=== PATIENT | female | born 1950 | race African-American/Black ===

== ENCOUNTER 2017-08-26 08:59 | Outpatient (CLI) | payer MEDICARE ==
[2017-08-26 09:34] LABS: Bilirubin Negative (Negative); Blood, Urine Small (Negative); Glucose, Urine (Dipstick) Negative (Negative); Ketone, Urine Negative (Negative); Nitrite Negative (Negative); Protein, Urine (Dipstick) 30 mg/dL (Neg-Trace); Urobilinogen 0.2 mg/dL (0.2-1.0)
[2017-08-26 09:36] LABS: Bacteria/HPF 1+ HPF (None Seen); Hyaline Casts/LPF 0-3 HYALINE CAST LPF (0-3 Hyaline); Squamous Epithelial 0-3 HPF (0-3); WBC/HPF 0-3 HPF (0-3)
[2017-08-26 09:43] LABS: Anion Gap 11 mmol/L (10-20); BUN (Urea Nitrogen) 17 mg/dL (9.8-20.1); Calc. Creatinine Clearance 0 mL/min (70-130); Carbon Dioxide 30 mmol/L (23-31); Chloride 104 mmol/L (98-107); Estimated GFR-MDRD 61
--- NOTE | 2017-08-26 12:10 | ULT ---
ULTRASOUND BILATERAL RENAL STANDARD: Date: 08/26/17 HISTORY: Renal cysts. COMPARISON: Renal ultrasound dated 01/16/16. TECHNIQUE: Real-time Mijares scale and color evaluation of the kidneys and urinary bladder was performed with a cur vilinear transducer. FINDINGS: Right kidney measures 10.6 x 3.9 x 5.5 cm. Left kidney measures 11.2 x 5.3 x 5.0 cm. There are multip le bilateral renal cysts, largest measuring up to 7.2 cm. Pre-void urinary bladder volume was 57 mL. No hydronephrosis or calcifications. IMPRESSION: Similar appearance of the bilateral renal simple cysts. POS: [facility]
== END 2017-08-26 09:00 | disposition home or self-care (01) ==
LOC: ULT 08:59
PROVIDERS: ATTEND Urology
DX: N20.0 Calculus of kidney (principal); R31.29 Other microscopic hematuria; N28.1 Cyst of kidney, acquired
CPT/HCPCS: 36415; 76770; 80048; 81001; 87086; 88112

== ENCOUNTER 2018-01-04 19:04 | Inpatient (IN) | payer MEDICARE ==
--- NOTE | 2018-01-04 22:04 | ULT ---
DOPPLER VENOUS ULTRASOUND OF BOTH LOWER EXTREMITIES 01/04/18 INDICATION: Elevated D-dimer and shortness of breath. TECHNIQUE: Mijares scale, color doppler and vascular duplex with spectral analysis was performed of the deep venous structures of both lower extremity. Common femoral vein, superficial femoral vein, popliteal vein, p osterior tibial vein, proximal greater saphenous and profunda veins were assessed. FINDINGS: Normal compression, flow, and augmentation seen within the deep venous structures of both lower extre mity. IMPRESSION: No evidence of DVT within both lower extremity. POS: [facility]
[2018-01-04] MEDS ORDERED: Acetaminophen 325 MG TAB PO PRN (23:25)
[2018-01-04] MEDS ORDERED: Ondansetron HCl/PF 4 MG/2 ML Vial IVP PRN (23:25)
[2018-01-04] MEDS ORDERED: Ondansetron ODT 4 MG TAB SL PRN (23:25)
[2018-01-05] MEDS ORDERED: Ondansetron HCl/PF 4 MG/2 ML Vial IVP PRN (06:37)
[2018-01-05] MEDS ORDERED: Senokot 8.6 MG TAB PO PRN ×2 (06:37)
[2018-01-05] MEDS ORDERED: Mag-Al 1200 mg/1200 mg/30 ML UDCUP PO PRN (06:37)
[2018-01-05] MEDS ORDERED: Bisacodyl 5 MG TAB PO PRN ×2 (06:37)
[2018-01-05] MEDS ORDERED: hydrALAZINE 20 MG/ML VIAL SLOW IVP PRN (06:37)
[2018-01-05] MEDS ORDERED: Nitroglycerin 0.4 MG TAB (25 Tab Bottle) SL PRN (06:37)
[2018-01-05] MEDS ORDERED: Calcium Carbonate 500 MG ChewTAB PO PRN (06:37)
[2018-01-05] MEDS: Mometasone/Formoterol 120 PUFF INHALER INH SCH ×2 (07:00→18:45)
--- NOTE | 2018-01-05 07:12 | HP ---
DATE OF ADMISSION: 01/05/2018 PRIMARY CARE PHYSICIAN: Dr. Chidi Caldwell. CHIEF COMPLAINT: Worsening shortness of breath. HISTORY OF PRESENT ILLNESS: Ms. Turner is a very pleasant 67-year-old -[place] female with past medical history of asthma which is well controlled, hyperthyroidism, stage 3 chronic kidney dise ase, dyslipidemia, and hypertension, who presented to the emergency room with above-mentioned complai nt. History is mainly obtained by the patient herself. Electronic medical records have been reviewe d. 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 She started to feel shortness of breath about 4-5 days ago. She sought medical attent ion with her primary care physician and was prescribed some steroids, but did not have any improvemen t in her symptoms. She continued to feel worse and presented to the emergency room in [place]. Ove r there, her initial workup was unremarkable including the chest x-ray and 12-lead EKG. At the time of presentation, her blood pressure was 196/123 and she was saturating 99% on room air. She was foun d to have diffuse wheezing. She received one dose of therapeutic Lovenox at 1 mg/kg as well as Solu- Medrol, magnesium, transdermal nitroglycerin, aspirin and multiple nebulizers. She was also given La six 40 mg x1 for possible fluid overload, even though her chest x-ray and her BNP were unremarkable. She was transferred to our facility for further evaluation. She was found to have elevated D-dimer at the transferring facility at 0.59. Her creatinine being el evated to 1.14, a CT angio could not be obtained. She is scheduled to get a VQ scan this morning to rule out PE, but at this time, the presumptive diagnosis at the time of admission is acute asthma exa cerbation leading to dyspnea. Lower extremity ultrasound has been done and is negative for any DVT. PAST MEDICAL HISTORY: 1. Hyperthyroidism. 2. Asthma. 3. Dyslipidemia. 4. Hypertension. PAST SURGICAL HISTORY: 1. Appendectomy. 2. Hysterectomy. 3. Back surgery. SOCIAL HISTORY: She works as a home health care provider and has no history of drug, tobacco or alco hol abuse. FAMILY HISTORY: No significant family history of premature coronary artery disease, cancer, or diabe julian. ALLERGIES: Include CODEINE as well as IODINE. HOME MEDICATIONS: Multivitamin 1 capsule daily, metoprolol tartrate 25 mg daily, methimazole 5 mg da ena, ferrous sulfate 325 mg daily, Lipitor 20 mg daily. REVIEW OF SYSTEMS: The following complete review of systems was negative, unless otherwise mentioned in the HPI or below: Constitutional: Weight loss or gain, ability to conduct usual activities. Skin: Rash, itching. Eyes: Double vision, pain. ENT/Mouth: Nose bleeding, neck stiffness, pain, tenderness. Cardiovascular: Palpitations, dyspnea on exertion, orthopnea. Respiratory: Shortness of breath, wheezing, cough, hemoptysis, fever or night sweats. Gastrointestinal: Poor appetite, abdominal pain, heartburn, nausea, vomiting, constipation, or diarr hea. Genitourinary: Urgency, frequency, dysuria, nocturia. Musculoskeletal: Pain, swelling. Neurologic/Psychiatric: Anxiety, depression. Allergy/Immunologic: Skin rash, bleeding tendency. LABORATORY DATA AND X-RAY FINDINGS: CBC is unremarkable. D-dimer 0.59. Serum chemistry shows BUN o f 24. Serum creatinine 1.14, which seems to be higher than her baseline. Blood sugar 121. BNP is 3 3. Liver enzymes within normal limit. Her TSH is low at 0.29. Urinalysis shows trace blood, otherw ise unremarkable. Urine drug screen is negative. Chest x-ray done in [place] [facility] review ed by myself does not have any evidence to suggest any congestion, edema, effusion or infiltrate. Lo wer extremity ultrasound is negative for any DVT bilaterally. A 12-lead EKG by my review shows ignacio l sinus rhythm at 81 beats per minute without any acute ST or T-wave changes. PHYSICAL EXAMINATION: VITAL SIGNS: Most recently, blood pressure 166/76, pulse of 70, respirations 16, saturating 96% on 2 liters nasal cannula, temperature 96.6. GENERAL: She appears somewhat uncomfortable and is coughing and complains of pain in the chest with deep breaths. Otherwise, no acute distress, awake, alert, oriented x3. HEENT: Mucous membrane is moist and pink. No oropharyngeal exudate or erythema. Head is normocepha lic, atraumatic. Pupils are equal, round and reactive to light and accommodation. NECK: Supple without any lymphadenopathy, JVD or bruit. CHEST: Evaluation show diffused wheezing bilaterally without any rhonchi or crackles. Rate and rhyt hm is regular without any murmur, rubs or gallops. ABDOMEN: Soft, nontender, nondistended with positive bowel sounds. EXTREMITIES: Free of any cyanosis, clubbing, or edema. NEUROLOGIC: Nonfocal. SKIN: Free of any rashes or bruises. Feel warm and dry to touch. PSYCHIATRIC: Normal affect. IMPRESSION AND PLAN: 1. Dyspnea, most likely this is secondary to acute asthma exacerbation; however, pulmonary embolism also needs to be ruled out given the elevated D-dimer and pleuritic chest pain. The patient denies a ny history of cardiac diseases in the past. Her cardiac enzymes done at [place] [facility] were unremarkable today. She will be treated with oxygen as well as nebulizers and IV steroids for now. Add long-acting inhaled steroids as well. VQ scan will be obtained. Her lower extremity ultrasound was negative for deep venous thrombosis and she has received one dose of therapeutic Lovenox in the emergency room last night. 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 She denies any fever or chills, but has bee n having some unrelenting cough for the last week or so. 2. Hypertension. We will restart her home medication of metoprolol. 3. Hyperthyroidism. The patient's TSH is rather suppressed at this time. Her methimazole dose need s to be adjusted. We will defer this to the primary care physician at this time. 4. Chronic kidney disease stage 3, currently stable, somewhat elevated above the baseline. Continue to monitor. 5. History of dyslipidemia. We will restart her Lipitor. 6. Deep venous thrombosis and gastrointestinal prophylaxis. 7. CODE STATUS: FULL CODE. Discussed with the patient. DISPOSITION: Ms. Turner is currently being admitted for dyspnea likely due to acute asthma exacerba tion. She is currently being admitted under observation status. Further management will depend upon her clinical course.
[2018-01-05] MEDS: Metoprolol Tartrate 25 MG TAB PO SCH (09:20)
[2018-01-05] MEDS: Multivitamin W/ Minerals 1 TAB PO SCH (09:20)
[2018-01-05] MEDS: Amoxicillin/Potassium Clav 875 MG TAB PO SCH ×2 (09:20→19:39)
[2018-01-05] MEDS: Atorvastatin Calcium 20 MG TAB PO SCH (09:20)
[2018-01-05] MEDS: Ferrous Sulfate 325 MG TAB PO SCH (09:20)
[2018-01-05] MEDS: Famotidine 20 MG TAB PO SCH ×2 (09:20→19:41)
[2018-01-05] MEDS: Enoxaparin Sodium 40 MG/0.4 ML SYRINGE SC SCH (09:21)
[2018-01-05] MEDS: Methimazole 5 MG TAB PO SCH (09:22)
[2018-01-05] MEDS: Acetaminophen 325 MG TAB PO PRN ×3 (09:26→19:39)
--- NOTE | 2018-01-05 11:09 | NM ---
NUCLEAR MEDICINE VENTILATION PERFUSION SCAN: (V/Q SCAN) DATE: 01/05/18. HISTORY: A 67-year-old female with dyspnea and elevated D-dimer. TECHNIQUE: Xenon-133 gas dose: 11.8 mCi. Ta96g-AMH dose: 6.6 mCi. The patient inhaled Xenon-133 gas, and dynamic ventilation scintigraphy was performed. [id number] was injected IV, and multiple perfusion scintigraphic views were obtained. FINDINGS: The distribution of MAA and Xenon is homogeneous. There are no ventilation defects or perfusion defe cts; no evidence of pulmonary thromboembolism. IMPRESSION: Normal. jn [] POS: [facility]
--- NOTE | 2018-01-05 12:57 | PDOC.PN ---
- Subjective Encounter Start Date: 01/05/18 Encounter Start Time: 10:15 Subjective: still has wheezing with coughing spells -: no chest pain or palp - Objective MAR Reviewed: Yes Vital Signs & Weight: Vital Signs (12 hours) Temp Pulse Resp BP BP Pulse Ox 01/05/18 12:14 98.7 F 78 24 H 158/85 H 97 01/05/18 11:28 98.6 F 78 18 168/87 H 95 01/05/18 09:25 18 181/95 H 100 01/05/18 09:10 98.5 F 99 18 201/99 H 98 01/05/18 08:00 98.5 F 99 18 100 01/05/18 07:03 70 14 01/05/18 04:10 81 18 136/81 96 01/05/18 02:08 74 16 Weight Weight 226 lb I&O: 01/04/18 01/05/18 01/06/18 06:59 06:59 06:59 Intake Total 482 Balance 482 Phys Exam - Physical Examination HEENT: PERRLA, moist MMs Neck: no JVD, supple Respiratory: no rales, wheezing present Cardiovascular: RRR, no significant murmur Gastrointestinal: soft, non-tender, positive bowel sounds Musculoskeletal: no edema, pulses present Neurological: non-focal, moves all 4 limbs Psychiatric: normal affect, A&O x 3 Dx/Plan (1) Asthma exacerbation Code(s): J45.901 - UNSPECIFIED ASTHMA WITH (ACUTE) EXACERBATION Status: Acute Qualifiers: Asthma severity: mild Asthma persistence: intermittent Qualified Code(s) : J45.21 - Mild intermittent asthma with (acute) exacerbation (2) HTN (hypertension) Code(s): I10 - ESSENTIAL (PRIMARY) HYPERTENSION Status: Chronic Qualifiers: Hypertension type: essential hypertension Qualified Code(s): I10 - Essential (primary) hypertension (3) Dyslipidemia Code(s): E78.5 - HYPERLIPIDEMIA, UNSPECIFIED Status: Chronic (4) Hyperthyroidism Code(s): E05.90 - THYROTOXICOSIS, UNSP WITHOUT THYROTOXIC CRISIS OR STORM Status: Chronic (5) Obesity Code(s): E66.9 - OBESITY, UNSPECIFIED Status: Chronic Qualifiers: Obesity classification: adult class 3 (BMI >= 40) Body mass index: BMI 40.0 -44.9 - Plan augmentin, steroids, nebs -: v/q scan is -ve for PE -: mucinex, tessalon -: oob to chair and mobilize as tolerated * . Review of Systems - Medications/Allergies Allergies/Adverse Reactions: Allergies Allergy/AdvReac Type Severity Reaction Status Date / Time codeine Allergy Verified 01/04/18 22:39 iodine Allergy Verified 01/04/18 22:39 Medications: Current Medications Acetaminophen (Tylenol) 650 mg PO Q4H PRN PRN Reason: Headache/Fever or Pain Last Admin: 01/05/18 09:26 Dose: 650 mg Al Hydroxide/Mg Hydroxide (Maalox) 30 ml PO Q6H PRN PRN Reason: Heartburn or Indigestion Albuterol/Ipratropium (Duoneb) 3 ml NEB [id number] [facility] Last Admin: 01/05/18 07:03 Dose: 3 ml Albuterol/Ipratropium (Duoneb) 3 ml NEB Q4H PRN PRN Reason: .SOB Amoxicillin/Clavulanate Potassium (Augmentin) 875 mg PO Q12HR [facility] Last Admin: 01/05/18 09:20 Dose: 875 mg Atorvastatin Calcium (Lipitor) 20 mg PO DAILY [facility] Last Admin: 01/05/18 09:20 Dose: 20 mg Bisacodyl (Dulcolax) 10 mg PO DAILYPRN PRN PRN Reason: Constipation Calcium Carbonate (Tums) 1,000 mg PO Q4H PRN PRN Reason: Heartburn or Indigestion Enoxaparin Sodium (Lovenox) 40 mg SC 0900 [facility] Last Admin: 01/05/18 09:21 Dose: 40 mg Famotidine (Pepcid) 20 mg PO BID [facility] Last Admin: 01/05/18 09:20 Dose: 20 mg Ferrous Sulfate (Feosol) 325 mg PO QAM-WM [facility] Last Admin: 01/05/18 09:20 Dose: 325 mg Hydralazine HCl (Apresoline) 10 mg SLOW IVP Q4H PRN PRN Reason: Systolic BP > 170 Iron/Minerals/Multivitamins (Theragran M) 1 tab PO DAILY [facility] Last Admin: 01/05/18 09:20 Dose: 1 tab Methimazole () 5 mg PO DAILY [facility] Last Admin: 01/05/18 09:22 Dose: Not Given Methylprednisolone Sodium Succinate (Solu-Medrol) 40 mg IVP 0200,0800,1400, 2000 [facility] Last Admin: 01/05/18 09:20 Dose: 40 mg Metoprolol Tartrate (Lopressor) 25 mg PO DAILY [facility] Last Admin: 01/05/18 09:20 Dose: 25 mg Mometasone Furoate/Formoterol Fumar (Dulera 200 Mcg/5 Mcg Inhaler) 2 puff INH BID-RT [facility] Last Admin: 01/05/18 07:00 Dose: 2 puff Montelukast Sodium (Singulair) 10 mg PO QPM [facility] Nitroglycerin (Nitrostat) 0.4 mg SL Q5MIN PRN PRN Reason: Chest Pain Ondansetron HCl (Zofran) 4 mg IVP Q6H PRN PRN Reason: Nausea/Vomiting Senna (Senokot) 2 tab PO HSPRN PRN PRN Reason: Constipation
[2018-01-05] MEDS: Benzonatate 100 MG CAP PO SCH ×2 (14:11→19:39)
[2018-01-05] MEDS: Montelukast Sodium 10 mg Tablet PO SCH (19:39)
[2018-01-05] MEDS: guaiFENesin ER 600 MG TAB PO SCH (19:41)
[2018-01-06 05:08] LABS: #Lymphocytes 0.8 thou/uL (1.20-3.40); #Monocytes 0.3 thou/uL (0.11-0.59); #Neutrophils 13.2 thou/uL (1.40-6.50); %Basophils 0.1 % (0.0-1.0); %Lymphocytes 5.5 % (21.0-51.0); %Neutrophils 92.4 % (42.0-75.0); Mean Corpuscular HGB CONC 33.7 g/dL (32.0-36.0); Mean Corpuscular Hemoglobin 31.5 pg (27.0-31.0); Mean Corpuscular Volume 93.4 fl (81.0-99.0); Mean Platelet Volume 8.4 fL (7.4-10.4); Platelet Count 268 thou/uL (130-400); RBC Distribution Width 13.3 % (11.5-14.5); White Blood Cell (WBC) Count 14.3 thou/uL (4.8-10.8)
[2018-01-06 05:30] LABS: Anion Gap 10 mmol/L (10-20); BUN (Urea Nitrogen) 33 mg/dL (9.8-20.1); Calc. Creatinine Clearance 83 mL/min (70-130); Calcium 9.7 mg/dL (7.8-10.44); Carbon Dioxide 30 mmol/L (23-31); Chloride 102 mmol/L (98-107); Estimated GFR-MDRD 62; Glucose 126 mg/dL (80-115); Potassium 3.8 mmol/L (3.5-5.1); Sodium 138 mmol/L (136-145)
[2018-01-06] MEDS ORDERED: Sodium Chloride 0.9% 500 ML IV SCH (07:45)
[2018-01-06] MEDS: Mometasone/Formoterol 120 PUFF INHALER INH SCH ×2 (08:15→20:36)
[2018-01-06] MEDS: Amoxicillin/Potassium Clav 875 MG TAB PO SCH ×2 (08:48→20:44)
[2018-01-06] MEDS: Benzonatate 100 MG CAP PO SCH ×3 (08:48→20:44)
[2018-01-06] MEDS: Enoxaparin Sodium 40 MG/0.4 ML SYRINGE SC SCH (08:48)
[2018-01-06] MEDS: Multivitamin W/ Minerals 1 TAB PO SCH (08:49)
[2018-01-06] MEDS: predniSONE 20 MG TAB PO SCH (08:49)
[2018-01-06] MEDS: Atorvastatin Calcium 20 MG TAB PO SCH (08:49)
[2018-01-06] MEDS: Ferrous Sulfate 325 MG TAB PO SCH (08:49)
[2018-01-06] MEDS: Metoprolol Tartrate 25 MG TAB PO SCH (08:49)
[2018-01-06] MEDS: Famotidine 20 MG TAB PO SCH ×2 (08:49→20:44)
[2018-01-06] MEDS: guaiFENesin ER 600 MG TAB PO SCH ×2 (08:49→20:44)
[2018-01-06] MEDS: Methimazole 5 MG TAB PO SCH (08:50)
--- NOTE | 2018-01-06 11:26 | PDOC.PN ---
- Subjective Encounter Start Date: 01/06/18 Encounter Start Time: 10:00 Subjective: still has sob even on min exertion in room -: no chest pain or palp - Objective MAR Reviewed: Yes Vital Signs & Weight: Vital Signs (12 hours) Temp Pulse Resp BP BP Pulse Ox 01/06/18 08:16 97 01/06/18 08:14 71 18 97 01/06/18 08:05 98.4 F 71 18 01/06/18 07:52 98.4 F 76 20 167/81 H 96 01/06/18 06:38 94 L 01/06/18 04:10 96 01/06/18 02:08 75 18 141/79 H 99 Weight Weight 226 lb I&O: 01/05/18 01/06/18 01/07/18 06:59 06:59 06:59 Intake Total 1983 Balance 1983 Result Diagrams: 01/06/18 04:11 01/06/18 04:11 Phys Exam - Physical Examination HEENT: PERRLA, moist MMs Neck: no JVD, supple Respiratory: no rales, wheezing present Cardiovascular: RRR, no significant murmur, no rub Gastrointestinal: soft, non-tender, positive bowel sounds Musculoskeletal: no edema, pulses present Neurological: non-focal, moves all 4 limbs Psychiatric: A&O x 3 Dx/Plan (1) Asthma exacerbation Code(s): J45.901 - UNSPECIFIED ASTHMA WITH (ACUTE) EXACERBATION Status: Acute Qualifiers: Asthma persistence: intermittent (2) HTN (hypertension) Code(s): I10 - ESSENTIAL (PRIMARY) HYPERTENSION Status: Chronic Qualifiers: Hypertension type: essential hypertension Qualified Code(s): I10 - Essential (primary) hypertension (3) Dyslipidemia Code(s): E78.5 - HYPERLIPIDEMIA, UNSPECIFIED Status: Chronic (4) Hyperthyroidism Code(s): E05.90 - THYROTOXICOSIS, UNSP WITHOUT THYROTOXIC CRISIS OR STORM Status: Chronic (5) Obesity Code(s): E66.9 - OBESITY, UNSPECIFIED Status: Chronic Qualifiers: Obesity classification: adult class 3 (BMI >= 40) Body mass index: BMI 40.0 -44.9 - Plan continue duonebs, prednisone -: augmentin -: switch pt to inpt status, still with exacerbation -: oob to chair and ambulate -: watch for renal function * . Review of Systems - Medications/Allergies Allergies/Adverse Reactions: Allergies Allergy/AdvReac Type Severity Reaction Status Date / Time codeine Allergy Verified 01/04/18 22:39 iodine Allergy Verified 01/04/18 22:39 Medications: Current Medications Acetaminophen (Tylenol) 650 mg PO Q4H PRN PRN Reason: Headache/Fever or Pain Last Admin: 01/05/18 19:39 Dose: 650 mg Al Hydroxide/Mg Hydroxide (Maalox) 30 ml PO Q6H PRN PRN Reason: Heartburn or Indigestion Albuterol/Ipratropium (Duoneb) 3 ml NEB [id number] [facility] Last Admin: 01/06/18 08:14 Dose: 3 ml Albuterol/Ipratropium (Duoneb) 3 ml NEB Q4H PRN PRN Reason: .SOB Amoxicillin/Clavulanate Potassium (Augmentin) 875 mg PO Q12HR [facility] Last Admin: 01/06/18 08:48 Dose: 875 mg Atorvastatin Calcium (Lipitor) 20 mg PO DAILY [facility] Last Admin: 01/06/18 08:49 Dose: 20 mg Benzonatate (Tessalon) 100 mg PO TID [facility] [place] Last Admin: 01/06/18 08:48 Dose: 100 mg Bisacodyl (Dulcolax) 10 mg PO DAILYPRN PRN PRN Reason: Constipation Calcium Carbonate (Tums) 1,000 mg PO Q4H PRN PRN Reason: Heartburn or Indigestion Enoxaparin Sodium (Lovenox) 40 mg SC 0900 [facility] [place] Last Admin: 01/06/18 08:48 Dose: 40 mg Famotidine (Pepcid) 20 mg PO BID [facility] [place] Last Admin: 01/06/18 08:49 Dose: 20 mg Ferrous Sulfate (Feosol) 325 mg PO QAM-WM [facility] [place] Last Admin: 01/06/18 08:49 Dose: 325 mg Guaifenesin (Mucinex) 600 mg PO Q12HR [facility] [place] Last Admin: 01/06/18 08:49 Dose: 600 mg Hydralazine HCl (Apresoline) 10 mg SLOW IVP Q4H PRN PRN Reason: Systolic BP > 170 Iron/Minerals/Multivitamins (Theragran M) 1 tab PO DAILY [facility] [place] Last Admin: 01/06/18 08:49 Dose: 1 tab Methimazole () 5 mg PO DAILY [facility] [place] Last Admin: 01/06/18 08:50 Dose: Not Given Metoprolol Tartrate (Lopressor) 25 mg PO DAILY [facility] [place] Last Admin: 01/06/18 08:49 Dose: 25 mg Mometasone Furoate/Formoterol Fumar (Dulera 200 Mcg/5 Mcg Inhaler) 2 puff INH BID-RT [facility] [place] Last Admin: 01/06/18 08:15 Dose: 2 puff Montelukast Sodium (Singulair) 10 mg PO QPM [facility] [place] Last Admin: 01/05/18 19:39 Dose: 10 mg Nitroglycerin (Nitrostat) 0.4 mg SL Q5MIN PRN PRN Reason: Chest Pain Ondansetron HCl (Zofran) 4 mg IVP Q6H PRN PRN Reason: Nausea/Vomiting Prednisone (Prednisone) 20 mg PO QAM-WM [facility] [place] Last Admin: 01/06/18 08:49 Dose: 20 mg Senna (Senokot) 2 tab PO HSPRN PRN PRN Reason: Constipation Sodium Chloride (Flush - Normal Saline) 10 ml IVF Q12HR [facility] Last Admin: 01/06/18 08:42 Dose: 10 ml Sodium Chloride (Flush - Normal Saline) 10 ml IVF PRN PRN PRN Reason: Saline Flush
[2018-01-06] MEDS: Acetaminophen 325 MG TAB PO PRN ×2 (14:47→20:45)
[2018-01-06] MEDS: Montelukast Sodium 10 mg Tablet PO SCH (20:44)
[2018-01-07] MEDS: Mometasone/Formoterol 120 PUFF INHALER INH SCH ×2 (06:34→20:03)
[2018-01-07] MEDS: Atorvastatin Calcium 20 MG TAB PO SCH (08:11)
[2018-01-07] MEDS: Amoxicillin/Potassium Clav 875 MG TAB PO SCH ×2 (08:11→19:43)
[2018-01-07] MEDS: Benzonatate 100 MG CAP PO SCH ×3 (08:11→19:43)
[2018-01-07] MEDS: guaiFENesin ER 600 MG TAB PO SCH ×2 (08:11→19:42)
[2018-01-07] MEDS: Multivitamin W/ Minerals 1 TAB PO SCH (08:11)
[2018-01-07] MEDS: Metoprolol Tartrate 25 MG TAB PO SCH (08:11)
[2018-01-07] MEDS: predniSONE 20 MG TAB PO SCH (08:11)
[2018-01-07] MEDS: Ferrous Sulfate 325 MG TAB PO SCH (08:11)
[2018-01-07] MEDS: Methimazole 5 MG TAB PO SCH (08:12)
[2018-01-07] MEDS: Enoxaparin Sodium 40 MG/0.4 ML SYRINGE SC SCH (08:12)
[2018-01-07] MEDS: Acetaminophen 325 MG TAB PO PRN ×3 (08:20→19:42)
[2018-01-07] MEDS: Famotidine 20 MG TAB PO SCH ×2 (09:03→19:43)
--- NOTE | 2018-01-07 12:09 | PDOC.PN ---
- Subjective Encounter Start Date: 01/07/18 Encounter Start Time: 10:40 Subjective: still sob but better, is amb in the room now - Objective MAR Reviewed: Yes Vital Signs & Weight: Vital Signs (12 hours) Temp Pulse Resp BP Pulse Ox 01/07/18 09:57 160/97 H 01/07/18 08:00 98.4 F 75 18 94 L 01/07/18 06:34 97 01/07/18 06:32 87 15 97 01/07/18 01:48 16 Weight Weight 226 lb I&O: 01/06/18 01/07/18 01/08/18 06:59 06:59 06:59 Intake Total 1983 Balance 1983 Result Diagrams: 01/06/18 04:11 01/06/18 04:11 Phys Exam - Physical Examination HEENT: PERRLA, moist MMs Neck: no JVD, supple Respiratory: no wheezing, no rales rhonchi++ Cardiovascular: RRR, no significant murmur Gastrointestinal: soft, non-tender, positive bowel sounds Musculoskeletal: no edema, pulses present Neurological: non-focal, moves all 4 limbs Psychiatric: A&O x 3 Dx/Plan (1) Asthma exacerbation Code(s): J45.901 - UNSPECIFIED ASTHMA WITH (ACUTE) EXACERBATION Status: Acute Qualifiers: Asthma persistence: intermittent (2) HTN (hypertension) Code(s): I10 - ESSENTIAL (PRIMARY) HYPERTENSION Status: Chronic Qualifiers: Hypertension type: essential hypertension Qualified Code(s): I10 - Essential (primary) hypertension (3) Dyslipidemia Code(s): E78.5 - HYPERLIPIDEMIA, UNSPECIFIED Status: Chronic (4) Hyperthyroidism Code(s): E05.90 - THYROTOXICOSIS, UNSP WITHOUT THYROTOXIC CRISIS OR STORM Status: Chronic (5) Obesity Code(s): E66.9 - OBESITY, UNSPECIFIED Status: Chronic Qualifiers: Obesity classification: adult class 3 (BMI >= 40) Body mass index: BMI 40.0 -44.9 - Plan is on duonebs, prednisone and empiric augmentin -: will need 1 more night, likely dc plan in am -: hemostable * . Review of Systems - Medications/Allergies Allergies/Adverse Reactions: Allergies Allergy/AdvReac Type Severity Reaction Status Date / Time codeine Allergy Verified 01/04/18 22:39 iodine Allergy Verified 01/04/18 22:39 Medications: Current Medications Acetaminophen (Tylenol) 650 mg PO Q4H PRN PRN Reason: Headache/Fever or Pain Last Admin: 01/07/18 08:20 Dose: 650 mg Al Hydroxide/Mg Hydroxide (Maalox) 30 ml PO Q6H PRN PRN Reason: Heartburn or Indigestion Albuterol/Ipratropium (Duoneb) 3 ml NEB [id number] [facility] Last Admin: 01/07/18 06:32 Dose: 3 ml Albuterol/Ipratropium (Duoneb) 3 ml NEB Q4H PRN PRN Reason: .SOB Last Admin: 01/06/18 14:29 Dose: 3 ml Amoxicillin/Clavulanate Potassium (Augmentin) 875 mg PO Q12HR [facility] Last Admin: 01/07/18 08:11 Dose: 875 mg Atorvastatin Calcium (Lipitor) 20 mg PO DAILY [facility] Last Admin: 01/07/18 08:11 Dose: 20 mg Benzonatate (Tessalon) 100 mg PO TID [facility] Last Admin: 01/07/18 08:11 Dose: 100 mg Bisacodyl (Dulcolax) 10 mg PO DAILYPRN PRN PRN Reason: Constipation Calcium Carbonate (Tums) 1,000 mg PO Q4H PRN PRN Reason: Heartburn or Indigestion Enoxaparin Sodium (Lovenox) 40 mg SC 0900 [facility] Last Admin: 01/07/18 08:12 Dose: 40 mg Famotidine (Pepcid) 20 mg PO BID [facility] Last Admin: 01/07/18 09:03 Dose: Not Given Ferrous Sulfate (Feosol) 325 mg PO QAM-WM [facility] Last Admin: 01/07/18 08:11 Dose: 325 mg Guaifenesin (Mucinex) 600 mg PO Q12HR [facility] Last Admin: 01/07/18 08:11 Dose: 600 mg Hydralazine HCl (Apresoline) 10 mg SLOW IVP Q4H PRN PRN Reason: Systolic BP > 170 Iron/Minerals/Multivitamins (Theragran M) 1 tab PO DAILY [facility] Last Admin: 01/07/18 08:11 Dose: 1 tab Methimazole () 5 mg PO DAILY [facility] Last Admin: 01/07/18 08:12 Dose: Not Given Metoprolol Tartrate (Lopressor) 25 mg PO DAILY [facility] Last Admin: 01/07/18 08:11 Dose: 25 mg Mometasone Furoate/Formoterol Fumar (Dulera 200 Mcg/5 Mcg Inhaler) 2 puff INH BID-RT [facility] Last Admin: 01/07/18 06:34 Dose: 2 puff Montelukast Sodium (Singulair) 10 mg PO QPM [facility] Last Admin: 01/06/18 20:44 Dose: 10 mg Nitroglycerin (Nitrostat) 0.4 mg SL Q5MIN PRN PRN Reason: Chest Pain Ondansetron HCl (Zofran) 4 mg IVP Q6H PRN PRN Reason: Nausea/Vomiting Prednisone (Prednisone) 20 mg PO QAM-WM [facility] Last Admin: 01/07/18 08:11 Dose: 20 mg Senna (Senokot) 2 tab PO HSPRN PRN PRN Reason: Constipation Last Admin: 01/06/18 11:59 Dose: 2 tab Sodium Chloride (Flush - Normal Saline) 10 ml IVF Q12HR [facility] Last Admin: 01/07/18 09:04 Dose: 10 ml Sodium Chloride (Flush - Normal Saline) 10 ml IVF PRN PRN PRN Reason: Saline Flush
[2018-01-07] MEDS: Montelukast Sodium 10 mg Tablet PO SCH (19:42)
[2018-01-08] MEDS: Mometasone/Formoterol 120 PUFF INHALER INH SCH (06:36)
[2018-01-08 08:00] VITALS: BP 163/92; TEMP 98.1
[2018-01-08] MEDS: Metoprolol Tartrate 25 MG TAB PO SCH (08:05)
[2018-01-08] MEDS: Multivitamin W/ Minerals 1 TAB PO SCH (08:05)
[2018-01-08] MEDS: predniSONE 20 MG TAB PO SCH (08:05)
[2018-01-08] MEDS: Methimazole 5 MG TAB PO SCH (08:05)
[2018-01-08] MEDS: Amoxicillin/Potassium Clav 875 MG TAB PO SCH (08:05)
[2018-01-08] MEDS: Benzonatate 100 MG CAP PO SCH (08:05)
[2018-01-08] MEDS: Ferrous Sulfate 325 MG TAB PO SCH (08:05)
[2018-01-08] MEDS: guaiFENesin ER 600 MG TAB PO SCH (08:05)
[2018-01-08] MEDS: Famotidine 20 MG TAB PO SCH (08:05)
[2018-01-08] MEDS: Atorvastatin Calcium 20 MG TAB PO SCH (08:05)
[2018-01-08] MEDS: Enoxaparin Sodium 40 MG/0.4 ML SYRINGE SC SCH (08:16)
--- NOTE | 2018-01-08 12:33 | PDOC.PN ---
- Subjective Encounter Start Date: 01/08/18 Encounter Start Time: 07:30 Subjective: breathing better - Objective MAR Reviewed: Yes Vital Signs & Weight: Vital Signs (12 hours) Temp Pulse Resp BP Pulse Ox 01/08/18 08:00 98.1 F 88 18 01/08/18 07:58 98.1 F 88 18 163/92 H 95 01/08/18 06:34 83 15 100 01/08/18 04:49 98.6 F 84 20 143/82 H 97 01/08/18 00:52 81 12 96 Weight Weight 226 lb I&O: 01/07/18 01/08/18 01/09/18 06:59 06:59 06:59 Intake Total 1000 Balance 1000 Result Diagrams: 01/06/18 04:11 01/06/18 04:11 Phys Exam - Physical Examination HEENT: PERRLA, moist MMs Neck: no JVD, supple Respiratory: no wheezing, no rales Cardiovascular: RRR, no significant murmur Gastrointestinal: soft, non-tender, positive bowel sounds Musculoskeletal: no edema, pulses present Neurological: non-focal, moves all 4 limbs Psychiatric: A&O x 3 Dx/Plan (1) Asthma exacerbation Code(s): J45.901 - UNSPECIFIED ASTHMA WITH (ACUTE) EXACERBATION Status: Acute Qualifiers: Asthma persistence: intermittent (2) HTN (hypertension) Code(s): I10 - ESSENTIAL (PRIMARY) HYPERTENSION Status: Chronic Qualifiers: Hypertension type: essential hypertension Qualified Code(s): I10 - Essential (primary) hypertension (3) Dyslipidemia Code(s): E78.5 - HYPERLIPIDEMIA, UNSPECIFIED Status: Chronic (4) Hyperthyroidism Code(s): E05.90 - THYROTOXICOSIS, UNSP WITHOUT THYROTOXIC CRISIS OR STORM Status: Chronic (5) Obesity Code(s): E66.9 - OBESITY, UNSPECIFIED Status: Chronic Qualifiers: Obesity classification: adult class 3 (BMI >= 40) Body mass index: BMI 40.0 -44.9 - Plan hemostable -: prednisone taper -: dc pt home -: nebs * . Review of Systems - Medications/Allergies Allergies/Adverse Reactions: Allergies Allergy/AdvReac Type Severity Reaction Status Date / Time codeine Allergy Verified 01/04/18 22:39 iodine Allergy Verified 01/04/18 22:39
--- NOTE | 2018-01-08 14:28 | DIS ---
DATE OF ADMISSION: 01/04/2018 DATE OF DISCHARGE: 01/08/2018 DISCHARGE DISPOSITION: To home. PRIMARY DISCHARGE DIAGNOSIS: Asthma exacerbation, resolving. SECONDARY DISCHARGE DIAGNOSES: Hypertension, dyslipidemia, obesity, and hyperthyroidism. PROCEDURES DONE DURING HOSPITALIZATION: The patient has had ultrasound venous Doppler done which julee wed no evidence of DVT. VQ scan showed low probability for PE. Chest x-ray done showed no acute inf iltrate. DISCHARGE MEDICATIONS: Augmentin 875 mg p.o. twice daily for another 3 days, albuterol nebulizer q.6 h. p.r.n., Lipitor 20 mg p.o. daily, ferrous sulfate 325 mg p.o. daily, methimazole 5 mg daily, Lopr essor 25 mg daily, Singulair 10 mg daily, prednisone tapering dose starting at 10 mg 3 times daily ov er a course of 13 days. ALLERGIES: CODEINE and IODINE. DISCHARGE PLAN: Patient to follow up with primary care physician in 1 week. BRIEF COURSE DURING HOSPITALIZATION: Patient initially came in with complaints of shortness of breat h and wheezing. She was essentially admitted for acute asthma exacerbation. Patient also had a V/Q scan done which was negative for PE. This was done in view of her allergy to IODINE. She was placed on steroids, nebulizers and empiric Augmentin. All of this has helped her. Prior to discharge, she was ambulating and eating well. She has been placed on Dulera, Singulair and prescriptions for albu terol nebulizer and rescue inhalers have been given. She also needs to continue tapering prednisone for a total of 13 days. She is hemodynamically stable. Please see a [id number] documentation on [facility] for the day of discharge.
--- NOTE | 2018-01-09 15:02 | EKG ---
Test Reason : Blood Pressure : / mmHG Vent. Rate : 074 BPM Atrial Rate : 074 BPM P-R Int : 122 ms QRS Dur : 088 ms QT Int : 408 ms P-R-T Axes : 023 -08 001 degrees QTc Int : 452 ms Normal sinus rhythm Voltage criteria for left ventricular hypertrophy Abnormal ECG Confirmed by IVONNE YOON ([id number]), graphics editor KELLY MARMOLEJO ([id number]) on 01/09/2018 3:00:29 PM Referred By: Confirmed By:IVONNE YOON
== END 2018-01-08 11:25 | disposition home or self-care (01) | DRG 202 ==
LOC: ERS 19:04 → 2SW 20:06 → OBSVTOIN 20:06 → 2SW 22:10 → T4-A 01-06 13:58
PROVIDERS: ADMIT Internal Medicine; ATTEND Internal Medicine
DX: J45.21 Mild intermittent asthma with (acute) exacerbation (principal); Z68.41 Body mass index [BMI] 40.0-44.9, adult; N18.3 Chronic kidney disease, stage 3 (moderate); E05.90 Thyrotoxicosis, unspecified without thyrotoxic crisis or storm; E78.5 Hyperlipidemia, unspecified; E66.9 Obesity, unspecified; I12.9 Hypertensive chronic kidney disease with stage 1 through stage 4 chronic kidney disease, or unspecified chronic kidney disease
CPT/HCPCS: 36415; 78582; 80048; 85025; 93005; 93970; 94640; 94760; A4216; A9540; A9558; J0360; J1650; J2920; J7506; J7620

== ENCOUNTER 2019-09-15 11:47 | Day surgery (SDC) | payer MEDICARE ==
[~2019-09-15 11:47] MED LIST: PROPOFOL 200 MG/20 ML VIAL ONE
[2019-09-15] MEDS ORDERED: EPINEPHrine 1 MG/ML AMP ONE (15:12)
[2019-09-15] MEDS ORDERED: Dexamethasone 20 MG/5 ML VIAL ONE (15:12)
[2019-09-15] MEDS ORDERED: Bupivacaine PF 0.5% 30 ML VIAL ONE (15:12)
[2019-09-15] MEDS ORDERED: Lidocaine 1% (PF) 30 ML VIAL ONE (15:12)
[2019-09-15] MEDS ORDERED: Sodium Chloride 0.9% 10 ML ONE (15:12)
[2019-09-15] MEDS ORDERED: Propofol 500 MG/50 ML VIAL ONE (17:22)
[2019-09-15] MEDS ORDERED: Ketamine 50 MG/ML (10ML VIAL) ONE (17:22)
[2019-09-15] MEDS ORDERED: Midazolam HCl 2 mg/2 ml Vial ONE (17:22)
[2019-09-15] MEDS ORDERED: Fentanyl 100 MCG/2 ML VIAL ONE (17:22)
[2019-09-15] MEDS ORDERED: HYDROcodone/Acetaminophen 5/325 mg Tablet ONE (18:36)
[2019-09-15] MEDS ORDERED: Morphine 2 MG/ML SYRINGE ONE (19:06)
--- NOTE | 2019-09-16 01:33 | OP ---
DATE OF PROCEDURE: 09/15/2019 PREOPERATIVE DIAGNOSES: 1. Post-laminectomy syndrome. 2. Chronic pain syndrome. 3. Lumbar radiculopathy. POSTOPERATIVE DIAGNOSES: 1. Post-laminectomy syndrome. 2. Chronic pain syndrome. 3. Lumbar radiculopathy. PROCEDURE: Spinal cord stimulator battery revision. SPECIMENS: Removed none. BLOOD LOSS: Minimal. PROCEDURE IN DETAIL: The patient was taken to the procedure room, placed prone on the procedure room table. A time-out was performed. The back was prepped with ChloraPrep. Sterile drapes were applied. We anesthetized the skin over the battery site with 0.5% Marcaine with epinephrine. I made an incision with a 10 blade scalpel and then we blunt dissected this down to the battery pocket. We opened the pocket. The battery was removed. We left the leads connected to the battery. The pocket was then dissected deep and lateral approximately 2 inches. The battery was then slipped into this newly formed pocket. We then used 2-0 Vicryl suture to close the pocket, so the battery would not migrate to the old pocket. We used tenotomies to make incisions into the previous pocket so that it would close down without a seroma formation. We used 2-0 Vicryl suture to collapse the entire pocket and then we used 2-0 Vicryl suture in a simple interrupted fashion to approximate the fascial layer. We used 3-0 Rapide Vicryl as a subcuticular stitch and Dermabond as an occlusive dressing. A sterile 4 x 4 and tape were placed over this and the patient was taken to Day Stay under stable condition. Job ID: [id number]
== END 2019-09-15 20:05 | disposition home or self-care (01) ==
LOC: SDC 11:47
PROVIDERS: ATTEND Specialist
PROC: 0JWT0MZ Revision of Stimulator Generator in Trunk Subcutaneous Tissue and Fascia, Open Approach (ICD-10-PCS; principal; 2019-09-15)
DX: M96.1 Postlaminectomy syndrome, not elsewhere classified (principal); G89.4 Chronic pain syndrome; M54.16 Radiculopathy, lumbar region; M48.061 Spinal stenosis, lumbar region without neurogenic claudication; J45.909 Unspecified asthma, uncomplicated; E78.00 Pure hypercholesterolemia, unspecified; I10 Essential (primary) hypertension; E11.9 Type 2 diabetes mellitus without complications; G43.909 Migraine, unspecified, not intractable, without status migrainosus; E07.9 Disorder of thyroid, unspecified; Z79.899 Other long term (current) drug therapy; Z88.5 Allergy status to narcotic agent; Z91.013 Allergy to seafood; Z91.041 Radiographic dye allergy status
CPT/HCPCS: J0171; J0690; J1100; J2001; J2250; J2270; J2704; J3010; S0020

== ENCOUNTER 2020-12-26 10:21 | Outpatient (CLI) | payer MEDICARE ==
[2020-12-26 22:42] LABS: SARS-CoV-2 PCR by NAA Not Detected (NotDetected)
== END 2020-12-26 10:22 | disposition home or self-care (01) ==
LOC: LABBT 10:21
PROVIDERS: ATTEND Specialist
DX: Z01.812 Encounter for preprocedural laboratory examination (principal); M54.16 Radiculopathy, lumbar region; M96.1 Postlaminectomy syndrome, not elsewhere classified; G89.29 Other chronic pain; Z20.822 Contact with and (suspected) exposure to COVID-19
CPT/HCPCS: U0003; U0005; 87635

== ENCOUNTER 2020-12-29 10:42 | Day surgery (SDC) | payer MEDICARE ==
[2020-12-28 10:53] VITALS: BMI 46.6
[2020-12-29] MEDS ORDERED: Sodium Chloride 0.9% 0 ML ONE (13:26)
[2020-12-29] MEDS ORDERED: CEFAZOLIN 1 GM VIAL ONE (13:26)
[2020-12-29] MEDS ORDERED: EPINEPHrine 1 MG/ML AMP ONE (13:32)
[2020-12-29] MEDS ORDERED: Bupivacaine PF 0.5% 30 ML VIAL ONE (13:32)
[2020-12-29] MEDS ORDERED: Fentanyl 100 MCG/2 ML VIAL ONE ×2 (13:49→16:15)
[2020-12-29] MEDS ORDERED: Metoclopramide HCl 10 MG/2 ML VIAL ONE (14:07)
[2020-12-29] MEDS ORDERED: PROPOFOL 200 MG/20 ML VIAL ONE (14:07)
[2020-12-29] MEDS ORDERED: Lidocaine 1% PF 5 ML VIAL ONE (14:07)
[2020-12-29] MEDS ORDERED: PHENYLEPHRINE-NS 100 MCG/ML 10 ML SYRINGE ONE (14:07)
[2020-12-29] MEDS ORDERED: Dexamethasone 20 MG/5 ML VIAL ONE (14:07)
[2020-12-29] MEDS ORDERED: Rocuronium Bromide 10 MG/ML (10ML VIAL) ONE (14:07)
[2020-12-29] MEDS ORDERED: Ondansetron PF 4 MG/2 ML Vial ONE (14:07)
[2020-12-29] MEDS ORDERED: SUGAMMADEX SODIUM 200 MG/2 ML VIAL ONE (15:50)
[2020-12-29] MEDS ORDERED: Meperidine HCl/PF 25 MG/ML VIAL ONE (16:15)
[2020-12-29] MEDS ORDERED: HYDROcodone/Acetaminophen 5/325 mg Tablet ONE (17:59)
== END 2020-12-29 18:40 | disposition home or self-care (01) ==
LOC: SDC 10:42
PROVIDERS: ATTEND Specialist
PROC: 0JWT0MZ Revision of Stimulator Generator in Trunk Subcutaneous Tissue and Fascia, Open Approach (ICD-10-PCS; principal; 2020-12-29)
DX: M96.1 Postlaminectomy syndrome, not elsewhere classified (principal); G89.4 Chronic pain syndrome; M54.16 Radiculopathy, lumbar region; E89.0 Postprocedural hypothyroidism; Z79.899 Other long term (current) drug therapy; Z88.5 Allergy status to narcotic agent; Z88.8 Allergy status to other drugs, medicaments and biological substances; Z91.013 Allergy to seafood
CPT/HCPCS: 76000; J0171; J0690; J1100; J2175; J2405; J2704; J2765; J3010; J3370; J3490; S0020

== ENCOUNTER 2023-02-01 05:47 | Inpatient (IN) | payer MEDICARE ==
[2023-02-01] MEDS ORDERED: Famotidine/PF 20 mg/2ml Vial ONE (06:14)
[2023-02-01] MEDS ORDERED: Tranexamic Acid 1,000 MG/10 ML VIAL ONE (06:14)
[2023-02-01] MEDS ORDERED: methylPREDNISolone Sod Succ/PF 125 MG/2 ML VIAL ONE (06:14)
[2023-02-01] MEDS ORDERED: diphenhydrAMINE 50 MG/ML VIAL ONE (06:14)
[2023-02-01 06:42] LABS: #Eosinphils 0.2 thou/uL (0.0-0.7); #Lymphocytes 1.7 thou/uL (1.20-3.40); #Monocytes 0.3 thou/uL (0.11-0.59); #Neutrophils 2.8 thou/uL (1.40-6.50); %Basophils 0.9 % (0.0-1.0); %Eosinophils 3.4 % (0.0-10.0); %Lymphocytes 33.5 % (21.0-51.0); %Monocytes 6.4 % (0.0-10.0); %Neutrophils 55.8 % (42.0-75.0); Hemoglobin 11.7 g/dL (12.0-16.0); Mean Corpuscular HGB CONC 33.7 g/dL (32.0-36.0); Mean Corpuscular Hemoglobin 30.4 pg (27.0-31.0); Mean Corpuscular Volume 90.3 fl (78.0-98.0); Mean Platelet Volume 8.9 fL (7.4-10.4); Platelet Count 225 10x3/uL (130-400); RBC Distribution Width 14.3 % (11.5-14.5); Red Blood Cell (RBC) Count 3.84 mill/uL (4.20-5.40)
[2023-02-01 07:07] LABS: ALT (SGPT) 12 U/L (8-55); AST (SGOT) 16 U/L (5-34); Albumin 3.9 g/dL (3.4-4.8); Alkaline Phosphatase 99 U/L (40-110); Anion Gap 16 mmol/L (10-20); BUN (Urea Nitrogen) 23 mg/dL (9.8-20.1); Bilirubin, Total 0.3 mg/dL (0.2-1.2); Calc. Creatinine Clearance 0 mL/min (70-130); Calcium 9.2 mg/dL (7.8-10.44); Carbon Dioxide 19 mmol/L (23-31); Chloride 111 mmol/L (98-107); Estimated GFR 33; Globulin 3.4 g/dL (2.4-3.5); Glucose 101 mg/dL (83-110); Protein, Total 7.3 g/dL (5.8-8.1); Sodium 142 mmol/L (136-145)
[2023-02-01] MEDS ORDERED: Ondansetron PF 4 MG/2 ML Vial IVP PRN (09:18)
[2023-02-01] MEDS ORDERED: Ondansetron ODT 4 MG TAB PO PRN (09:18)
[2023-02-01] MEDS ORDERED: Senokot S 8.6-50 MG TAB PO PRN (09:18)
[2023-02-01] MEDS ORDERED: Acetaminophen 650 MG Suppository PR PRN (09:18)
[2023-02-01] MEDS ORDERED: Calcium Carbonate 500 MG ChewTAB PO PRN (09:18)
[2023-02-01 09:20] VITALS: BMI 45.5
[2023-02-01] MEDS ORDERED: Electrolyte Replacement Protocol 1 EACH IVPB ONE (09:21)
[2023-02-01] MEDS ORDERED: hydrALAZINE 20 MG/ML VIAL SLOW IVP PRN (09:22)
[2023-02-01] MEDS ORDERED: methylPREDNISolone Sod Succ 40 MG VIAL IVP SCH (09:30)
[2023-02-01] MEDS ORDERED: diphenhydrAMINE 50 MG/ML VIAL IVP SCH (09:30)
[2023-02-01] MEDS ORDERED: Electrolyte Replacement Protocol FS PRN (09:45)
[2023-02-01] MEDS: Famotidine/PF 20 mg/2ml Vial SLOW IVP SCH (10:19)
[2023-02-01] MEDS: Sodium Chloride 0.9% 1,000 ML IV SCH ×2 (10:53→17:29)
[2023-02-01] MEDS ORDERED: Metoprolol Tartrate 25 MG TAB PO SCH (11:15)
[2023-02-01] MEDS ORDERED: Amlodipine 5 MG TAB PO SCH (11:15)
[2023-02-01] MEDS: Ipratropium/Albuterol 3 ML NEB NEB SCH ×2 (13:46→18:50)
[2023-02-01] MEDS: methylPREDNISolone Sod Succ 40 MG VIAL IVP SCH ×2 (14:00→22:14)
[2023-02-01] MEDS: diphenhydrAMINE 50 MG/ML VIAL IVP SCH ×2 (14:01→22:14)
[2023-02-01] MEDS: Acetaminophen 325 MG TAB PO PRN ×2 (14:46→22:24)
[2023-02-01] MEDS: Budesonide 0.5 MG/2 ML NEB NEB SCH (18:52)
[2023-02-01] MEDS: Metoprolol Tartrate 25 MG TAB PO SCH (22:14)
[2023-02-01] MEDS: Amlodipine 5 MG TAB PO SCH (22:14)
[2023-02-01 22:15] VITALS: BP 166/88
[2023-02-02] MEDS: Ipratropium/Albuterol 3 ML NEB NEB SCH ×2 (01:46→07:21)
[2023-02-02 03:51] LABS: #Basophils 0.1 thou/uL (0.0-0.2); #Lymphocytes 0.7 thou/uL (1.20-3.40); #Monocytes 0.1 thou/uL (0.11-0.59); #Neutrophils 8.2 thou/uL (1.40-6.50); %Basophils 0.6 % (0.0-1.0); %Eosinophils 0.3 % (0.0-10.0); %Lymphocytes 7.5 % (21.0-51.0); %Monocytes 0.7 % (0.0-10.0); %Neutrophils 90.9 % (42.0-75.0); Hemoglobin 11.6 g/dL (12.0-16.0); Mean Corpuscular HGB CONC 34.3 g/dL (32.0-36.0); Mean Corpuscular Hemoglobin 31.3 pg (27.0-31.0); Mean Corpuscular Volume 91.2 fl (78.0-98.0); Mean Platelet Volume 8.8 fL (7.4-10.4); Platelet Count 226 10x3/uL (130-400); RBC Distribution Width 14.2 % (11.5-14.5); Red Blood Cell (RBC) Count 3.71 mill/uL (4.20-5.40)
[2023-02-02 04:13] LABS: Anion Gap 13 mmol/L (10-20); BUN (Urea Nitrogen) 21 mg/dL (9.8-20.1); Calc. Creatinine Clearance 59 mL/min (70-130); Calcium 9.4 mg/dL (7.8-10.44); Carbon Dioxide 22 mmol/L (23-31); Chloride 108 mmol/L (98-107); Estimated GFR 36; Glucose 157 mg/dL (83-110); Potassium 4.2 mmol/L (3.5-5.1); Sodium 139 mmol/L (136-145)
[2023-02-02] MEDS ORDERED: Levothyroxine Sodium 112 MCG TAB PO SCH (06:00)
[2023-02-02] MEDS: diphenhydrAMINE 50 MG/ML VIAL IVP SCH (06:01)
[2023-02-02] MEDS: methylPREDNISolone Sod Succ 40 MG VIAL IVP SCH (06:01)
[2023-02-02] MEDS: Budesonide 0.5 MG/2 ML NEB NEB SCH (07:21)
[2023-02-02 07:53] VITALS: TEMP 98.4
[2023-02-02] MEDS: Famotidine/PF 20 mg/2ml Vial SLOW IVP SCH (08:02)
[2023-02-02] MEDS: Metoprolol Tartrate 25 MG TAB PO SCH (08:02)
[2023-02-02] MEDS: Amlodipine 5 MG TAB PO SCH (08:02)
== END 2023-02-02 12:30 | disposition home or self-care (01) | DRG 916 ==
LOC: ERS 05:47 → IMCU/EMU 08:52
PROVIDERS: ADMIT Internal Medicine; ATTEND Family Medicine
PROC: 30233K1 Transfusion of Nonautologous Frozen Plasma into Peripheral Vein, Percutaneous Approach (ICD-10-PCS; principal; 2023-02-01)
DX: T78.3XXA Angioneurotic edema, initial encounter (principal); Z68.42 Body mass index [BMI] 45.0-49.9, adult; E66.01 Morbid (severe) obesity due to excess calories; E78.5 Hyperlipidemia, unspecified; J45.909 Unspecified asthma, uncomplicated; N18.30 Chronic kidney disease, stage 3 unspecified; E89.0 Postprocedural hypothyroidism; F17.210 Nicotine dependence, cigarettes, uncomplicated; I12.9 Hypertensive chronic kidney disease with stage 1 through stage 4 chronic kidney disease, or unspecified chronic kidney disease; Z96.653 Presence of artificial knee joint, bilateral; T46.4X5A Adverse effect of angiotensin-converting-enzyme inhibitors, initial encounter; Z79.890 Hormone replacement therapy; Z79.899 Other long term (current) drug therapy; Z88.8 Allergy status to other drugs, medicaments and biological substances; Z88.6 Allergy status to analgesic agent; Z91.041 Radiographic dye allergy status; Z91.013 Allergy to seafood; Z90.49 Acquired absence of other specified parts of digestive tract
CPT/HCPCS: 36415; 36430; 71045; 80048; 80053; 85025; 86850; 86900; 86901; 94640; 94760; J1200; J1650; J2920; J2930; J7050; J7620; J7626; P9059; S0028

== ENCOUNTER 2024-05-26 17:29 | Inpatient (IN) | payer MEDICARE ==
[~2024-05-26 17:29] MED LIST changes: +Iopamidol-370 76% 500 ML MDV (1 ML CHARGE) ONE; -PROPOFOL 200 MG/20 ML VIAL ONE
[2024-05-26] MEDS ORDERED: Acetaminophen 500 MG TAB ONE (19:11)
[2024-05-26] MEDS ORDERED: Nitroglycerin 0.4 MG TAB 1 EACH ONE (19:13)
[2024-05-26] MEDS ORDERED: Aspirin Chewable 81 MG TAB ONE (19:15)
[2024-05-26 19:54] LABS: #Basophils Less than 0.03 10x3/uL (0.0-0.2); %Basophils 0.5 % (0.0-1.0); %Lymphocytes 33.2 % (21.0-51.0); %Monocytes 10.2 % (0.0-10.0); %Neutrophils 53.9 % (42.0-75.0); Mean Corpuscular HGB CONC 33.3 g/dL (32.0-36.0); Mean Corpuscular Hemoglobin 30.2 pg (27.0-31.0); Mean Corpuscular Volume 90.5 fL (78.0-98.0); Mean Platelet Volume 11.3 fL (7.4-10.4); Platelet Count 250 10x3/uL (130-400); RBC Distribution Width 15.2 % (11.5-14.5); Red Blood Cell (RBC) Count 3.98 mill/uL (4.20-5.40)
[2024-05-26 20:12] LABS: ALT (SGPT) 14 U/L (8-55); AST (SGOT) 19 U/L (5-34); Albumin 3.5 g/dL (3.4-4.8); Alkaline Phosphatase 107 U/L (40-110); Anion Gap 14 mmol/L (10-20); BUN (Urea Nitrogen) 28 mg/dL (9.8-20.1); Bilirubin, Total 0.4 mg/dL (0.2-1.2); Calc. Creatinine Clearance 0 mL/min (70-130); Calcium 9.3 mg/dL (7.8-10.44); Carbon Dioxide 26 mmol/L (23-31); Chloride 107 mmol/L (98-107); Estimated GFR 30; Glucose 105 mg/dL (83-110); Lipase 49 U/L (8-78); Potassium 3.9 mmol/L (3.5-5.1); Protein, Total 7.5 g/dL (5.8-8.1); Sodium 143 mmol/L (136-145)
[2024-05-26 20:16] LABS: Troponin I 0.015 ng/mL (< 0.028)
[2024-05-26] MEDS ORDERED: methylPREDNISolone Sod Succ 40 MG VIAL ONE (22:33)
[2024-05-26] MEDS ORDERED: diphenhydrAMINE 50 MG/ML VIAL ONE (22:33)
[2024-05-26] MEDS ORDERED: Famotidine/PF 20 mg/2ml Vial ONE (22:34)
[2024-05-27 00:34] LABS: Troponin I 0.024 ng/mL (< 0.028)
[2024-05-27] MEDS ORDERED: Acetaminophen 325 MG TAB PO PRN (01:15)
[2024-05-27] MEDS ORDERED: Ondansetron ODT 4 MG TAB SL PRN (01:15)
[2024-05-27] MEDS ORDERED: Ondansetron PF 4 MG/2 ML Vial IVP PRN (01:15)
[2024-05-27 02:04] VITALS: BMI 43.2
[2024-05-27 03:23] LABS: Troponin I Less than 0.010 ng/mL (< 0.028)
[2024-05-27] MEDS ORDERED: Albuterol 2.5 MG (3 mL) NEB NEB PRN (04:28)
[2024-05-27] MEDS: methylPREDNISolone Sod Succ 40 MG VIAL IVP SCH ×2 (05:50→22:59)
[2024-05-27 07:03] LABS: Troponin I 0.023 ng/mL (< 0.028)
[2024-05-27 07:57] LABS: Troponin I Less than 0.010 ng/mL (< 0.028)
[2024-05-27] MEDS: Aspirin 325 mg Enteric Coated Tablet PO SCH (10:19)
[2024-05-27 11:56] LABS: Anion Gap 13 mmol/L (10-20); BUN (Urea Nitrogen) 27 mg/dL (9.8-20.1); Calc. Creatinine Clearance 49 mL/min (70-130); Calcium 9.5 mg/dL (7.8-10.44); Carbon Dioxide 24 mmol/L (23-31); Chloride 110 mmol/L (98-107); Estimated GFR 32; Glucose 135 mg/dL (83-110); Potassium 4.5 mmol/L (3.5-5.1); Sodium 142 mmol/L (136-145)
[2024-05-27] MEDS: Atorvastatin Calcium 20 MG TAB PO SCH (20:15)
[2024-05-27] MEDS: Metoprolol Tartrate 50 MG TAB PO SCH (20:16)
[2024-05-27] MEDS: Pentoxifylline 400 MG ER.TAB PO SCH (20:16)
[2024-05-27] MEDS: Potassium Chloride 20 MEQ TAB PO SCH (20:26)
[2024-05-27] MEDS: Famotidine 20 MG TAB PO SCH (20:26)
[2024-05-28 04:22] LABS: Cardiac Risk 2.7 (Less than 4.5)
[2024-05-28] MEDS: Levothyroxine Sodium 112 MCG TAB PO SCH (05:51)
[2024-05-28] MEDS: Calcium Carbonate 600 MG + Vit D TAB PO SCH (09:55)
[2024-05-28] MEDS: Amlodipine 10 MG TAB PO SCH (10:01)
[2024-05-28] MEDS: hydrALAZINE 20 MG/ML VIAL SLOW IVP PRN (10:52)
[2024-05-28] MEDS: hydrALAZINE 25 MG TAB PO SCH (15:11)
[2024-05-28] MEDS: Fioricet 325/50/40 mg Tablet PO SCH (15:12)
[2024-05-28] MEDS: Metoprolol Tartrate 50 MG TAB PO SCH (21:40)
[2024-05-28] MEDS: Fioricet 325/50/40 mg Tablet PO PRN (21:41)
[2024-05-28] MEDS: methylPREDNISolone Sod Succ 40 MG VIAL IVP SCH (21:43)
[2024-05-29] MEDS: Aspirin 81 mg Enteric Coated Tablet PO SCH (08:24)
[2024-05-29] MEDS: SUMAtriptan Succinate 25 MG TAB PO SCH (13:41)
[2024-05-29] MEDS: Promethazine HCl 25 MG in Sodium Chloride 0.9% 50 ML IVPB SCH (14:12)
[2024-05-30 05:26] VITALS: TEMP 98.1
[2024-05-30] MEDS ORDERED: Regadenoson 0.4 MG/5 ML SYRINGE ONE (10:02)
[2024-05-30] MEDS: SUMAtriptan Succinate 25 MG TAB PO SCH (12:13)
[2024-05-30] MEDS: traMADol HCl 50 MG TAB PO SCH (13:51)
[2024-05-30] MEDS: SUMAtriptan Succinate 50 MG TAB PO PRN (15:02)
[2024-05-30 15:18] VITALS: BP 140/78
== END 2024-05-30 15:18 | disposition home or self-care (01) | DRG 202 ==
LOC: ERS 17:29 → 2SW 05-27 00:50 → OBSVTOIN 05-28 14:14
PROVIDERS: ADMIT Hospitalist; ATTEND Family Medicine
DX: J45.21 Mild intermittent asthma with (acute) exacerbation (principal); Q21.10 Atrial septal defect, unspecified; M94.0 Chondrocostal junction syndrome [Tietze]; I12.9 Hypertensive chronic kidney disease with stage 1 through stage 4 chronic kidney disease, or unspecified chronic kidney disease; N18.30 Chronic kidney disease, stage 3 unspecified; G43.909 Migraine, unspecified, not intractable, without status migrainosus; E78.5 Hyperlipidemia, unspecified; F17.210 Nicotine dependence, cigarettes, uncomplicated; Z96.653 Presence of artificial knee joint, bilateral; G47.00 Insomnia, unspecified; E89.0 Postprocedural hypothyroidism; Z88.5 Allergy status to narcotic agent; Z91.013 Allergy to seafood; Z91.041 Radiographic dye allergy status; Z88.8 Allergy status to other drugs, medicaments and biological substances; Z79.899 Other long term (current) drug therapy; Z79.890 Hormone replacement therapy
CPT/HCPCS: 36415; 70450; 71045; 71275; 78452; 80048; 80053; 80061; 83690; 83735; 83880; 84484; 85025; 85379; 93005; 93017; 93306; 94760; 96374; 96375; 96376; A9502; G0378; J0360; J1200; J2550; J2785; J2919; J3490; Q9967